=== PATIENT | female | born 1960 | race Caucasian/White ===

== ENCOUNTER 2016-03-28 12:06 | Emergency (ER) | payer OTHER ==
[2016-03-28 12:28] VITALS: BP 105/77
--- NOTE | 2016-03-28 12:59 | UC ---
Back Pain HPI - HPI Summary HPI Summary: low back pain after a slip on ice over a week ago. Continued pain. Pt is DM states she has neuropathy so already has had numbness. Pt has tramadol at home that she uses for pain. Mostly came for "an xray". - History of Current Complaint Chief Complaint: UCBackPain Stated Complaint: BACK INJURY FROM FALL Time Seen by Provider: 03/28/16 12:56 Hx Obtained From: Patient Hx Last Menstrual Period: n/a Onset/Duration: Gradual Onset, Lasting Weeks - 1, Still Present Timing: Constant Severity Initially: Severe Severity Currently: Severe Pain Intensity: 8 Pain Scale Used: 0-10 Numeric Back Pain: Is Discrete @ - lower back and tailbone Character: Sharp Aggravating: Movement Alleviating: Nothing Associated Signs And Symptoms: Positive: Pain with Weight Bearing. Negative: Bruising, Bladder Incontinence, Bowel Incontinence - Allergies/Home Medications Allergies/Adverse Reactions: Allergies Allergy/AdvReac Type Severity Reaction Status Date / Time No Known Allergies Allergy Verified 03/28/16 12:28 PMH/Surg Hx/FS Hx/Imm Hx Endocrine History Of: Reports: Diabetes - DX january 2016 Cardiovascular History Of: Reports: Cardiac Disorders - heart murmur, Hypertension - Surgical History Surgical History: Yes Surgery Procedure, Year, and Place: 4 . [place]. hysterectomy - Family History Known Family History: Positive: Hypertension, Diabetes - Social History Lives: With Family Alcohol Use: None Substance Use Type: Prescribed Smoking Status (MU): Heavy Every Day Tobacco Smoker Type: Cigarettes Amount Used/How Often: 1/2 pack to 1 pack x 10 years Review of Systems Constitutional: Negative Skin: Negative Eyes: Negative ENT: Negative Respiratory: Negative Cardiovascular: Negative Gastrointestinal: Negative Genitourinary: Dysuria, Other - urinates small amounts Motor: Negative Neurovascular: Negative Musculoskeletal: Negative Neurological: Negative Psychological: Negative All Other Systems Reviewed And Are Negative: Yes Physical Exam Triage Information Reviewed: Yes Appearance: Well-Nourished, Ill-Appearing, Pain Distress Vital Signs: Initial Vital Signs Temp 96.3 F 03/28/16 12:21 Pulse 89 03/28/16 12:21 Resp 18 03/28/16 12:21 BP 105/77 03/28/16 12:21 Pulse Ox 97 03/28/16 12:21 Vital Signs Reviewed: Yes Eyes: Positive: Conjunctiva Clear ENT: Positive: Normal ENT inspection Neck: Positive: Supple Respiratory: Positive: No respiratory distress Cardiovascular: Positive: RRR, Pulses Normal, Brisk Capillary Refill Abdomen Description: Positive: Nontender, No Organomegaly, Soft. Negative: CVA Tenderness (R), CVA Tenderness (L), Distended, Guarding, McBurney's Point Tenderness, Peritoneal Signs, Pulsatile Mass Bowel Sounds: Positive: Present Musculoskeletal: Positive: Strength Intact, ROM Intact, Other: - pain lumbosacral spines and coccyx. Reflexes 2+ knee, symmetric. Antalgic gait. Neurological: Positive: Alert, Muscle Tone Normal Psychological Exam: Normal Skin Exam: Normal Back Pain Course/Dx - Course Course Of Treatment: xray shows fractured coccyx. UA with 25 wbc's, neg nitrite , no blood. sent for culture - Differential Dx/Diagnosis Differential Diagnosis/HQI/PQRI: Herniated Disc, Strain, Sprain, Other - fracture Provider Diagnoses: fracture coccyx. possible UTI Discharge - Discharge Plan Condition: Stable Disposition: HOME Prescriptions: Nitrofurantoin Monohyd Macro [Macrobid] 100 mg PO BID #10 cap Patient Education Materials: Coccyx Injury (ED), Urinary Tract Infection in Women (ED) Referrals: Kevin Go MD [Primary Care Provider] - Bob Goldstein DO [Doctor of Osteopathy] - Additional Instructions: Your coccyx is fractured. Follow up with Dr. Martin (orthopedics). Go to the emergency room if you have any new or worsening symptoms.
[2016-03-28] MEDS ORDERED: Acetaminophen TAB* 325 MG PO ONE (13:21)
--- NOTE | 2016-03-28 14:00 | RAD ---
INDICATION: Fell one week ago. Back pain. COMPARISON: December 07, 2003 TECHNIQUE: Routine PA, lateral, and oblique imaging was performed . FINDINGS: Bones: There are no acute bony findings. There are arthritic changes consisting of aggressive narrowing about L5-S1. Alignment: Normal Disc spaces: The remaining disc spaces are well-maintained Soft tissues: There are no soft tissue abnormalities. IMPRESSION: NO ACUTE FINDINGS. L5-S1 NARROWING.
--- NOTE | 2016-03-28 14:08 | RAD ---
INDICATION: Fell one week ago. Pain. COMPARISON: December 07, 2003 TECHNIQUE: 2 views of the coccyx and sacrum were obtained FINDINGS: There is offset and cortical irregularity at the sacrococcygeal junction consistent with a sacrococcygeal fracture. This is new since 2003. No other significant bony changes are noted. There is mild sclerosis about the SI joints but the SI joints appear patent. The SI joints are not included on the prior exam. IMPRESSION: FRACTURE AT THE SACROCOCCYGEAL JUNCTION
== END 2016-03-28 14:47 | disposition home or self-care (01) ==
LOC: UCCORT 12:06
DX: S32.2XXA Fracture of coccyx, initial encounter for closed fracture (principal); W00.0XXA Fall on same level due to ice and snow, initial encounter; Y93.9 Activity, unspecified; Y92.9 Unspecified place or not applicable; R30.0 Dysuria; E11.40 Type 2 diabetes mellitus with diabetic neuropathy, unspecified; F17.210 Nicotine dependence, cigarettes, uncomplicated
CPT/HCPCS: 72110; 72220; 87086; 99212; A9270-GY; G0463